=== PATIENT | female | born 2000 | race American Indian/Alaskan Native ===

== ENCOUNTER 2019-11-04 06:22 | Emergency (ER) | payer OTHER ==
[2019-11-04 06:31] VITALS: BP 108/54
--- NOTE | 2019-11-04 08:17 | Emergency Department Report ---
ED ENT HPI - General Chief complaint: Sore Throat Stated complaint: THROAT PAIN/DIF Time Seen by Provider: 11/04/19 07:03 Source: patient Mode of arrival: Ambulatory Limitations: No Limitations - History of Present Illness Initial comments: Visit pleasant 19-year-old female presents to the emergency department with a chief complaint of sore throat. She reports this started yesterday after eating some chicken. She states that she feels that there is something in her throat. She states she has been able to eat and drink since without difficulty. She denies any past medical history, current medications or known allergies to medications. She rates the severity of the pain is made out of 10 with a rate of by swallowing. She denies any associated chest pain, shortness of breath, fever, chills, night sweats, headache, dizziness, blurry vision or any other associated symptoms. - Related Data Previous Rx's Medication Instructions Recorded Last Taken Type Nystas/Diphen/Xyl Visc/Mylanta 30 ml PO TID PRN #90 ml 11/04/19 Unknown Rx [Magic Mouthwash] Allergies Allergy/AdvReac Type Severity Reaction Status Date / Time No Known Allergies Allergy Verified 11/04/19 06:26 ED Dental HPI - General Chief complaint: Sore Throat Stated complaint: THROAT PAIN/DIF Time Seen by Provider: 11/04/19 07:03 Source: patient Mode of arrival: Ambulatory Limitations: No Limitations - Related Data Previous Rx's Medication Instructions Recorded Last Taken Type Nystas/Diphen/Xyl Visc/Mylanta 30 ml PO TID PRN #90 ml 11/04/19 Unknown Rx [Magic Mouthwash] Allergies Allergy/AdvReac Type Severity Reaction Status Date / Time No Known Allergies Allergy Verified 11/04/19 06:26 ED Review of Systems ROS: Stated complaint: THROAT PAIN/DIF Other details as noted in HPI Comment: All other systems reviewed and negative Constitutional: denies: chills, fever Eyes: denies: eye pain, eye discharge, vision change ENT: throat pain. denies: ear pain Respiratory: denies: cough, shortness of breath, wheezing Cardiovascular: denies: chest pain, palpitations Endocrine: no symptoms reported Gastrointestinal: denies: abdominal pain, nausea, diarrhea Genitourinary: denies: urgency, dysuria, discharge Musculoskeletal: denies: back pain, joint swelling, arthralgia Skin: denies: rash, lesions Neurological: denies: headache, weakness, paresthesias Psychiatric: denies: anxiety, depression Hematological/Lymphatic: denies: easy bleeding, easy bruising ED Past Medical Hx - Past Medical History Previous Medical History?: No - Surgical History Past Surgical History?: No - Social History Smoking Status: Never Smoker Substance Use Type: Marijuana - Medications Home Medications: Home Medications Medication Instructions Recorded Confirmed Last Taken Type Nystas/Diphen/Xyl Visc/Mylanta 30 ml PO TID PRN #90 ml 11/04/19 Unknown Rx [Magic Mouthwash] ED Physical Exam - General Limitations: No Limitations General appearance: alert, in no apparent distress - Head Head exam: Present: atraumatic, normocephalic - Eye Eye exam: Present: normal appearance, PERRL, EOMI Pupils: Present: normal accommodation - ENT ENT exam: Present: normal exam, normal orophraynx, mucous membranes moist - Neck Neck exam: Present: normal inspection, full ROM. Absent: tenderness, meningismus - Respiratory Respiratory exam: Present: normal lung sounds bilaterally. Absent: respiratory distress, wheezes, rales, rhonchi, stridor - Cardiovascular Cardiovascular Exam: Present: regular rate, normal rhythm, normal heart sounds. Absent: systolic murmur, diastolic murmur, rubs, gallop - GI/Abdominal GI/Abdominal exam: Present: soft, normal bowel sounds. Absent: distended, tenderness, guarding, rebound, rigid - Extremities Exam Extremities exam: Present: normal inspection, full ROM, normal capillary refill. Absent: tenderness - Back Exam Back exam: Present: normal inspection, full ROM. Absent: tenderness, CVA tenderness (R), CVA tenderness (L) - Neurological Exam Neurological exam: Present: alert, oriented X3, normal gait - Psychiatric Psychiatric exam: Present: normal affect, normal mood - Skin Skin exam: Present: warm, dry, intact, normal color. Absent: rash ED Course Vital Signs 11/04/19 06:30 Temperature 98.1 F Pulse Rate 79 Respiratory 16 Rate Blood Pressure 108/54 [Left] O2 Sat by Pulse 100 Oximetry ED Medical Decision Making - Medical Decision Making Patient is nontoxic in no acute distress. Vitals are stable. There was no peritonsillar bulging, retropharyngeal bulging, tongue elevation or submandibular swelling making peritonsillar abscess, retropharyngeal abscess or Claudio angina unlikely. The patient was tolerating her secretions well and had no vomiting. She was able tolerate by mouth fluids well. I suspect this may be more of a scratch to the esophagus rather than it was food bolus impaction. I did offer an x-ray however the patient stated she felt better and wanted to go home. Recommend she return to the emergency department with a changing worsening symptoms and she realized understanding of these instructions. She verbalized understanding of the diagnosis, treatment plan follow-up instructions and all of her questions were answered. - Differential Diagnosis strep throat, viral pharyngitis, esophageal foreign body Critical care attestation.: If time is entered above; I have spent that time in minutes in the direct care of this critically ill patient, excluding procedure time. ED Disposition Clinical Impression: Throat pain in adult Disposition: DC-01 TO HOME OR SELFCARE Is pt being admited?: No Instructions: Pharyngitis (ED) Prescriptions: Nystas/Diphen/Xyl Visc/Mylanta [Magic Mouthwash] 30 ml PO TID PRN #90 ml PRN Reason: Pain , Severe (7-10) Referrals: MILLER CORTES MD [Staff Physician] - 3-5 Days Forms: Work/School Release Form(ED) Time of Disposition: 08:32
== END 2019-11-04 08:51 | disposition home or self-care (01) ==
LOC: ED 06:22
DX: J02.9 Acute pharyngitis, unspecified (principal); F12.10 Cannabis abuse, uncomplicated; Z79.899 Other long term (current) drug therapy
CPT/HCPCS: 99282

== ENCOUNTER 2022-07-02 03:26 | Emergency (ER) | payer OTHER ==
[2022-07-02] MEDS ORDERED: ONDANSETRON 4 MG ODT TAB PO ONE (03:36)
[2022-07-02 03:39] VITALS: BP 119/86
== END 2022-07-02 05:00 | disposition left against medical advice (07) ==
LOC: ED 03:26
DX: R11.10 Vomiting, unspecified (principal); Z53.21 Procedure and treatment not carried out due to patient leaving prior to being seen by health care provider
CPT/HCPCS: J3490; Q0162